=== PATIENT | male | born 1950 | race Caucasian/White ===

== ENCOUNTER 2016-11-25 01:46 | Inpatient (IN) | payer BC, OTHER ==
[~2016-11-25] VITALS: Ht 167.6 cm; Wt 68.0 kg
[2016-11-26] MEDS ORDERED: ALPR1TAB7 (03:08)
[2016-11-26] MEDS ORDERED: AMIT100T2 (03:08)
[2016-11-26] MEDS ORDERED: ZOLP12.542 (03:08)
[2016-11-26] MEDS ORDERED: LISI40TA4 (03:08)
[2016-11-26] MEDS ORDERED: BUPR1TAB40 (03:08)
[2016-11-26 03:16] LABS: *AMPHETAMINE, URINE NEGATIVE (NEGATIVE); *BARBITURATE, URINE NEGATIVE (NEGATIVE); *CANNABINOID, URINE NEGATIVE (NEGATIVE); *COCCAINE, URINE POSITIVE (NEGATIVE); *OPIATE, URINE NEGATIVE (NEGATIVE); *PHENCYCLIDINE SCREEN,URINE NEGATIVE (NEGATIVE)
[2016-11-26 04:00] VITALS: BP 139/79
[2016-11-26] MEDS ORDERED: AMIT100T2 PO (04:02)
[2016-11-26] MEDS ORDERED: LOPERAMIDE HCL 2 MG CAPSULE PO PRN ×2 (06:00)
[2016-11-26] MEDS ORDERED: ONDANSETRON ODT 4 MG TAB.RAPDIS SL PRN (06:00)
[2016-11-26] MEDS ORDERED: diphenhydrAMINE 50 MG CAPSULE PO PRN ×2 (06:00→18:45)
[2016-11-26] MEDS ORDERED: MIRALAX 17 GM POWD.PACK PO PRN (06:00)
[2016-11-26] MEDS ORDERED: MAGNESIUM HYDROXIDE 30 ML LIQUID UDC PO PRN (06:00)
[2016-11-26] MEDS ORDERED: CLONIDINE HCL 0.1 MG TABLET PO PRN (06:00)
[2016-11-26] MEDS ORDERED: MAG HYDROX/AL HYDROX/SIMETH 30 ML LIQUID UDC PO PRN (06:00)
[2016-11-26] MEDS ORDERED: METHOCARBAMOL 750 MG TABLET PO PRN (06:00)
[2016-11-26] MEDS ORDERED: ACETAMINOPHEN 325 MG TABLET PO PRN (06:00)
[2016-11-26] MEDS ORDERED: IBUPROFEN 400 MG TABLET PO PRN (06:00)
[2016-11-26 08:00] VITALS: BP 141/66
[2016-11-26 08:24] LABS: ALANINE AMINOTRANSFERASE 11 U/L (16-63); ALBUMIN 2.9 g/dL (3.4-5.0); ALKALINE PHOSPHATASE 86 U/L (50-136); ASPARTATE AMINOTRANSFERASE 20 U/L (15-37); BILIRUBIN,TOTAL 0.3 mg/dL (0.2-1.0); CALCIUM 8.6 mg/dL (8.5-10.1); CARBON DIOXIDE 29 mmol/L (21-32); CHLORIDE 109 mmol/L (98-107); CREATININE 0.9 mg/dL (0.6-1.3); GFR 85 mL/min (>60); GLUCOSE 93 mg/dL (74-106); MAGNESIUM 1.9 mg/dL (1.8-2.4); SODIUM SERUM 143 mmol/L (136-145); TOTAL PROTEIN, SERUM 6.8 g/dL (6.4-8.2); UREA NITROGEN, BLOOD 9 mg/dL (7-18)
[2016-11-26 08:34] LABS: THYROID STIMULATING HORMONE 4.508 mIU/mL (0.358-3.740)
[2016-11-26 08:45] LABS: BASOPHILS # (AUTO) 0.1 K/uL (0.0-0.2); BASOPHILS % (AUTO) 0.8 % (0.0-2.0); EOSINOPHILS # (AUTO) 0.2 K/uL (0.0-0.7); EOSINOPHILS % (AUTO) 2.3 % (0.0-7.0); HEMATOCRIT 34.8 % (40.0-50.0); HEMOGLOBIN 11.7 g/dL (14.0-18.0); MEAN CORPUSCULAR HEMOGLOBIN 31.6 uug (27.0-31.0); MEAN CORPUSCULAR HGB CONC 34 g/dL (32.0-37.0); MEAN CORPUSCULAR VOLUME 93.6 fL (82.0-92.0); MONOCYTES # (AUTO) 0.7 K/uL (0.1-1.30); MONOCYTES % (AUTO) 8.5 % (0.0-11.0); NEUTROPHILS # (AUTO) 5.8 K/uL (1.8-8.9); NEUTROPHILS % (AUTO) 65.4 % (38.5-71.5); PLATELET COUNT (AUTO) 308 K/uL (150-450); RED BLOOD CELL COUNT(AUTO) 3.72 MIL/uL (4.70-6.10); RED CELL DISTRIBUTION WIDTH 13.5 % (11.5-14.5); WHITE BLOOD COUNT (AUTO) 8.8 K/uL (4.0-11.2)
[2016-11-26] MEDS: MULTIVITAMINS,THERAPEUTIC TABLET PO SCH (09:02)
[2016-11-26 09:08] LABS: ETHANOL < 3 MG/DL (0-0)
[2016-11-26 10:38] LABS: HIV-1 p24 ANTIGEN NON REACTIVE (NONREACTIVE); HIV-1/2 ANTIBODY NON REACTIVE (NONREACTIVE)
[2016-11-26 12:00] VITALS: BP 154/84
[2016-11-26] MEDS ORDERED: LORAZEPAM 2 MG/1 ML VIAL IM PRN (12:30)
[2016-11-26] MEDS ORDERED: LORAZEPAM 1 MG TABLET PO PRN ×2 (12:30)
[2016-11-26] MEDS ORDERED: AMITRIPTYLINE HCL 50 MG TABLET PO PRN (14:30)
[2016-11-26 16:00] VITALS: BP 155/81
[2016-11-26] MEDS: HYDROXYZINE PAMOATE 25 MG CAPSULE PO PRN ×2 (16:39→21:28)
[2016-11-26 20:00] VITALS: BP 136/81
[2016-11-27] VITALS: BP 131/77
[2016-11-27 08:00] VITALS: BP 132/60
[2016-11-27 08:30] LABS: THYROID STIMULATING HORMONE 2.949 mIU/mL (0.358-3.740)
[2016-11-27 08:49] LABS: CALCIUM 8.2 mg/dL (8.5-10.1); CREATININE 0.9 mg/dL (0.6-1.3); MAGNESIUM 1.9 mg/dL (1.8-2.4); POTASSIUM 4.1 mmol/L (3.5-5.1)
[2016-11-27] MEDS ORDERED: TUBERCULIN,PURIF.PROT.DERIV. 5 TU/0.1 ML TEST ID ONE (09:00)
[2016-11-27] MEDS: HYDROXYZINE PAMOATE 25 MG CAPSULE PO PRN ×3 (09:52→21:22)
[2016-11-27] MEDS: LISINOPRIL 20 MG TABLET PO SCH (09:53)
[2016-11-27] MEDS: MULTIVITAMINS,THERAPEUTIC TABLET PO SCH (09:53)
[2016-11-27 12:00] VITALS: BP 155/88
[2016-11-27] MEDS: CEPHALEXIN MONOHYDRATE 500 MG CAPSULE PO SCH ×2 (14:40→21:21)
[2016-11-27 16:00] VITALS: BP 148/88
[2016-11-27] MEDS ORDERED: LACT1CAP57 PO (17:04)
[2016-11-27] MEDS ORDERED: ASCO250T5 PO (17:04)
[2016-11-27] MEDS ORDERED: FERR325T28 PO (17:04)
[2016-11-27] MEDS ORDERED: Cephalexin Monohydrate PO (17:04)
[2016-11-27] MEDS ORDERED: HYDR-3895 PO (17:04)
[2016-11-27] MEDS: NEOMY/BACITRAC/POLYMI OINT 28.35 GM TUBE TOP SCH (18:54)
[2016-11-27 20:00] VITALS: BP 147/76
[2016-11-27] MEDS ORDERED: TRAZODONE 50 MG TABLET PO ONE (21:00)
[2016-11-27] MEDS: FERROUS SULFATE 325 MG TABEC PO SCH (21:21)
[2016-11-27] MEDS: LACTOBACILLUS RHAMNOSUS GG 1 EACH CAPSULE PO SCH (21:21)
[2016-11-27] MEDS: ASCORBIC ACID 250 MG TABLET PO SCH (21:21)
[2016-11-27] MEDS: SULFAMETH/TRIMETH 800/160 MG TABLET PO SCH (21:21)
[2016-11-27 21:46] LABS: *AMPHETAMINE, URINE NEGATIVE (NEGATIVE); *BARBITURATE, URINE NEGATIVE (NEGATIVE); *CANNABINOID, URINE NEGATIVE (NEGATIVE); *COCCAINE, URINE POSITIVE (NEGATIVE); *OPIATE, URINE NEGATIVE (NEGATIVE); *PHENCYCLIDINE SCREEN,URINE NEGATIVE (NEGATIVE)
[2016-11-28] MEDS: HYDROXYZINE PAMOATE 25 MG CAPSULE PO PRN ×2 (04:08→12:04)
[2016-11-28 04:23] LABS: HEPATITIS B CORE AB, IgM Negative (Negative); HEPATITIS B SURFACE AG Negative (Negative)
[2016-11-28] MEDS: CEPHALEXIN MONOHYDRATE 500 MG CAPSULE PO SCH (06:45)
[2016-11-28 08:00] VITALS: BP 134/80
[2016-11-28] MEDS: FERROUS SULFATE 325 MG TABEC PO SCH (08:17)
[2016-11-28] MEDS: LACTOBACILLUS RHAMNOSUS GG 1 EACH CAPSULE PO SCH (08:17)
[2016-11-28] MEDS: SULFAMETH/TRIMETH 800/160 MG TABLET PO SCH (08:17)
[2016-11-28] MEDS: LISINOPRIL 20 MG TABLET PO SCH (08:21)
[2016-11-28] MEDS: MULTIVITAMINS,THERAPEUTIC TABLET PO SCH (08:21)
[2016-11-28] MEDS: ASCORBIC ACID 250 MG TABLET PO SCH (08:21)
[2016-11-28] MEDS: NEOMY/BACITRAC/POLYMI OINT 28.35 GM TUBE TOP SCH (08:22)
[2016-11-28 12:00] VITALS: BP 125/77
[2016-11-28] MEDS ORDERED: SULF1TAB3 PO (12:33)
== END 2016-11-28 12:50 | disposition other institution (70) | DRG 895 ==
LOC: SRC 11-26 00:55
PROVIDERS: ADMIT Internal Medicine; ATTEND Internal Medicine
PROC: HZ2ZZZZ Detoxification Services for Substance Abuse Treatment (ICD-10-PCS; principal; 2016-11-26)
PROC: HZ51ZZZ Individual Psychotherapy for Substance Abuse Treatment, Behavioral (ICD-10-PCS; 2016-11-28)
DX: F14.229 Cocaine dependence with intoxication, unspecified (principal); L03.115 Cellulitis of right lower limb; F13.120 Sedative, hypnotic or anxiolytic abuse with intoxication, uncomplicated; Z80.9 Family history of malignant neoplasm, unspecified; Z81.8 Family history of other mental and behavioral disorders; F17.210 Nicotine dependence, cigarettes, uncomplicated; F11.21 Opioid dependence, in remission; F41.9 Anxiety disorder, unspecified; I10 Essential (primary) hypertension; D53.9 Nutritional anemia, unspecified; G47.00 Insomnia, unspecified; E07.81 Sick-euthyroid syndrome; F31.9 Bipolar disorder, unspecified; R26.81 Unsteadiness on feet; S80.811S Abrasion, right lower leg, sequela; X58.XXXS Exposure to other specified factors, sequela
CPT/HCPCS: 36415; 71010; 80307; 82746; 83550; 83735; 84443; 85025; 86705; 87070; 87077; 87340; 87806; A4663; G6040-TC; Q0163

== ENCOUNTER 2016-11-26 02:44 | Emergency (ER) | payer BC, OTHER ==
[~2016-11-26] VITALS: Ht 167.6 cm; Wt 68.0 kg
[2016-11-26 03:04] LABS: *BILIRUBIN,URIN NEGATIVE (NEGATIVE); *BLOOD, URINE NEGATIVE (NEGATIVE); *CLARITY,URINE CLEAR (CLEAR); *COLOR,URINE YELLOW (YELLOW); *KETONES,URINE NEGATIVE (NEGATIVE); *PROTEIN,URINE NEGATIVE (NEGATIVE); *UROBILINOGEN,URINE 0.2 E.U./dl (NORMAL); LEUKOCYTE ESTERASE ,URINE NEGATIVE (NEGATIVE); NITRITE, URINE NEGATIVE (NEGATIVE); UGLUCOSE NEGATIVE (NEGATIVE)
[2016-11-26] MEDS ORDERED: ZOLP12.542 (03:08)
[2016-11-26] MEDS ORDERED: ALPR1TAB7 (03:08)
[2016-11-26] MEDS ORDERED: BUPR1TAB40 (03:08)
[2016-11-26] MEDS ORDERED: AMIT100T2 (03:08)
[2016-11-26] MEDS ORDERED: LISI40TA4 (03:08)
--- NOTE | 2016-11-26 03:11 | NUR ---
Patient BIB [facility] staff c/o lethargy. Patient states "I'm just tired and want to sleep but they keep asking more questions." Patient states that he did "crack cocaine" prior to arriving. Patient appears lethargic and continually falls asleep when talking. To room 4B, LONG performed MSE.
[2016-11-26 03:23] LABS: BACTERIA,URINE NONE SEEN /HPF (NONE SEEN); RBC,URINE 0-3 /HPF (0-3); SQUAMOUS EPITHELIAL CELL,UR FEW /HPF (NONE SEEN); WBC,URINE 0-3 /HPF (0-3)
[2016-11-26 03:35] LABS: CALCIUM 8.6 mg/dL (8.5-10.1); CARBON DIOXIDE 27 mmol/L (21-32); CHLORIDE 108 mmol/L (98-107); CREATININE 1.1 mg/dL (0.6-1.3); GFR 68 mL/min (>60); GLUCOSE 95 mg/dL (74-106); POTASSIUM 3.8 mmol/L (3.5-5.1); SODIUM SERUM 144 mmol/L (136-145); UREA NITROGEN, BLOOD 10 mg/dL (7-18)
[2016-11-26 03:36] LABS: BASOPHILS # (AUTO) 0.1 K/uL (0.0-0.2); BASOPHILS % (AUTO) 0.7 % (0.0-2.0); EOSINOPHILS # (AUTO) 0.2 K/uL (0.0-0.7); EOSINOPHILS % (AUTO) 2.3 % (0.0-7.0); HEMOGLOBIN 11.5 g/dL (14.0-18.0); LYMPHOCYTES # (AUTO) 2.4 K/uL (0.8-4.8); LYMPHOCYTES % (AUTO) 27.6 % (20.5-51.5); MEAN CORPUSCULAR HEMOGLOBIN 31.9 uug (27.0-31.0); MEAN CORPUSCULAR HGB CONC 34 g/dL (32.0-37.0); MEAN CORPUSCULAR VOLUME 94.2 fL (82.0-92.0); MONOCYTES # (AUTO) 0.8 K/uL (0.1-1.30); MONOCYTES % (AUTO) 9.9 % (0.0-11.0); NEUTROPHILS % (AUTO) 59.5 % (38.5-71.5); PLATELET COUNT (AUTO) 305 K/uL (150-450); RED BLOOD CELL COUNT(AUTO) 3.61 MIL/uL (4.70-6.10); RED CELL DISTRIBUTION WIDTH 13.4 % (11.5-14.5); WHITE BLOOD COUNT (AUTO) 8.5 K/uL (4.0-11.2)
[2016-11-26 03:39] LABS: ETHANOL < 3 MG/DL (0-0)
[2016-11-26 03:41] LABS: ACETAMINOPHEN < 2.0 ug/mL (10-30); ALANINE AMINOTRANSFERASE 12 U/L (16-63); ALKALINE PHOSPHATASE 87 U/L (50-136); ASPARTATE AMINOTRANSFERASE 13 U/L (15-37); BILIRUBIN,DIRECT 0.1 mg/dL (0.0-0.2); BILIRUBIN,TOTAL 0.2 mg/dL (0.2-1.0); TOTAL PROTEIN, SERUM 6.9 g/dL (6.4-8.2)
[2016-11-26] MEDS ORDERED: AMIT100T2 PO (04:02)
--- NOTE | 2016-11-26 04:05 | NUR ---
Patient discharged to [facility] in stable conditon. Verbal after care instructions given. Patient verbalizes understanding of instructions.
[2016-11-27] MEDS ORDERED: ASCO250T5 PO (17:04)
[2016-11-27] MEDS ORDERED: HYDR-3895 PO (17:04)
[2016-11-27] MEDS ORDERED: Cephalexin Monohydrate PO (17:04)
[2016-11-27] MEDS ORDERED: LACT1CAP57 PO (17:04)
[2016-11-27] MEDS ORDERED: FERR325T28 PO (17:04)
[2016-11-28] MEDS ORDERED: SULF1TAB3 PO (12:33)
== END 2016-11-26 04:08 | disposition home or self-care (01) ==
LOC: ER 02:48
DX: F14.10 Cocaine abuse, uncomplicated (principal); I10 Essential (primary) hypertension
CPT/HCPCS: 36415; 70030-TC; 85025; 85730; 93005; A4663; G0480-TC; G6040-TC